=== PATIENT | female | born 1975 | race African-American/Black ===

== ENCOUNTER 2016-08-08 18:00 | Emergency (ER) | payer OTHER ==
[~2016-08-08] VITALS: Ht 160 cm; Wt 89.9 kg
[2016-08-08] MEDS ORDERED: HYDR25TA60 PO (18:51)
== END 2016-08-08 19:33 | disposition home or self-care (01) ==
LOC: ED 18:00
DX: I10 Essential (primary) hypertension (principal); E66.9 Obesity, unspecified
CPT/HCPCS: 99281

== ENCOUNTER 2018-03-18 21:34 | Emergency (ER) | payer OTHER ==
[~2018-03-18] VITALS: Ht 157.5 cm; Wt 93.4 kg
[~2018-03-18 21:34] MED LIST: HYDR25TA60 PO
[2018-03-18 21:42] VITALS: TEMP 98.5
[2018-03-18 22:29] VITALS: BP 131/89
== END 2018-03-18 22:30 | disposition home or self-care (01) ==
LOC: ED 21:34
DX: F45.8 Other somatoform disorders (principal)
CPT/HCPCS: 99281

== ENCOUNTER 2018-08-22 22:16 | Emergency (ER) | payer OTHER ==
[~2018-08-22] VITALS: Ht 157.5 cm; Wt 88.5 kg
[2018-08-22 23:26] LABS: PLATELET COUNT 385 K/uL (152-353)
[2018-08-22 23:34] LABS: POTASSIUM 3.4 mmol/L (3.6-5.2)
[2018-08-23 04:10] VITALS: BP 143/77; TEMP 98.2
== END 2018-08-23 04:10 | disposition short-term general hospital (02) ==
LOC: ED 22:16
PROVIDERS: Internal Medicine
DX: K35.890 Other acute appendicitis without perforation or gangrene (principal)
CPT/HCPCS: 80053; 81000; 85027; 96365; 96375; 99285; J1885; J2543; Q9963

== ENCOUNTER 2019-03-18 20:27 | Emergency (ER) | payer OTHER ==
[~2019-03-18] VITALS: Ht 157.5 cm; Wt 88.5 kg
[2019-03-18 21:40] VITALS: BP 131/84; TEMP 98.1
== END 2019-03-18 21:40 | disposition home or self-care (01) ==
LOC: ED 20:27
DX: J06.9 Acute upper respiratory infection, unspecified (principal)
CPT/HCPCS: 87502; 87651; 99283

== ENCOUNTER 2019-03-22 08:42 | Outpatient (CLI) | payer OTHER | END 2019-03-22 19:39 | disposition home or self-care (01) | LOC: RAD 08:42 | DX: J02.8 Acute pharyngitis due to other specified organisms (principal) ==

== ENCOUNTER 2019-08-14 13:41 | Outpatient (CLI) | payer OTHER | END 2019-08-14 20:38 | disposition home or self-care (01) | LOC: LAB 13:41 | DX: U07.1 COVID-19 (principal); J02.9 Acute pharyngitis, unspecified; J01.90 Acute sinusitis, unspecified; Z20.828 Contact with and (suspected) exposure to other viral communicable diseases | CPT/HCPCS: 87635; G2023; U0002 ==

== ENCOUNTER 2019-08-28 15:11 | Outpatient (CLI) | payer OTHER | END 2019-08-28 20:39 | disposition home or self-care (01) | LOC: RAD 15:11 | DX: B34.2 Coronavirus infection, unspecified (principal); J02.9 Acute pharyngitis, unspecified; R05 Cough ==

== ENCOUNTER 2019-10-05 08:14 | Outpatient (CLI) | payer OTHER | END 2019-10-05 20:23 | disposition home or self-care (01) | LOC: RAD 08:14 | DX: R05 Cough (principal); B37.0 Candidal stomatitis; B34.2 Coronavirus infection, unspecified ==

== ENCOUNTER 2020-02-11 11:36 | Outpatient (CLI) | payer OTHER ==
[2020-02-11 12:59] LABS: PLATELET COUNT 322 K/uL (152-353)
[2020-02-11 13:03] LABS: POTASSIUM 3.7 mmol/L (3.6-5.2)
== END 2020-02-11 21:58 | disposition home or self-care (01) ==
LOC: RAD 11:36 → LABW 11:36 → RAD 21:58
PROVIDERS: ATTEND Family Medicine
DX: R19.7 Diarrhea, unspecified (principal); R10.9 Unspecified abdominal pain
CPT/HCPCS: 36415; 80053; 82272; 85027; 87015; 87045; 87324; 87328; 87329; 87425; 87449; 87899

== ENCOUNTER 2021-02-02 10:25 | Outpatient (CLI) | payer OTHER ==
[2021-02-02 11:45] LABS: POTASSIUM 3.3 mmol/L (3.6-5.2)
[2021-02-02 11:55] LABS: PLATELET COUNT 351 K/uL (152-353)
== END 2021-02-02 19:00 | disposition home or self-care (01) ==
LOC: LABW 10:25
PROVIDERS: ATTEND Family Medicine
DX: R10.9 Unspecified abdominal pain (principal); M54.9 Dorsalgia, unspecified
CPT/HCPCS: 36415; 80053; 80061; 81000; 82150; 83690; 85027

== ENCOUNTER 2021-02-05 10:28 | Outpatient (CLI) | payer OTHER | END 2021-02-05 19:26 | disposition home or self-care (01) | LOC: US 10:28 | PROVIDERS: ATTEND Family Medicine | DX: R10.9 Unspecified abdominal pain (principal); M54.9 Dorsalgia, unspecified ==

== ENCOUNTER 2021-07-07 08:23 | Outpatient (CLI) | payer OTHER ==
[2021-07-07 08:50] LABS: PLATELET COUNT 344 K/uL (152-353)
[2021-07-07 09:17] LABS: POTASSIUM 3.6 mmol/L (3.6-5.2)
== END 2021-07-07 19:26 | disposition home or self-care (01) ==
LOC: LABW 08:23
PROVIDERS: ATTEND Family Medicine
DX: N93.8 Other specified abnormal uterine and vaginal bleeding (principal); N92.6 Irregular menstruation, unspecified; D64.9 Anemia, unspecified; R68.82 Decreased libido; E66.9 Obesity, unspecified; I10 Essential (primary) hypertension
CPT/HCPCS: 36415; 80053; 81000; 82728; 83001; 83002; 83540; 83550; 84402; 84403; 84439; 84443; 85027

== ENCOUNTER 2021-07-28 09:55 | Outpatient (CLI) | payer OTHER | END 2021-07-28 18:58 | disposition home or self-care (01) | LOC: US 09:55 | PROVIDERS: ATTEND Family Medicine | DX: N93.8 Other specified abnormal uterine and vaginal bleeding (principal); N92.6 Irregular menstruation, unspecified; D64.9 Anemia, unspecified; R68.82 Decreased libido; E66.9 Obesity, unspecified ==

== ENCOUNTER 2022-04-28 09:09 | Outpatient (CLI) | payer OTHER | END 2022-04-28 19:39 | disposition home or self-care (01) | LOC: MAMMO 09:09 | PROVIDERS: ATTEND Family Medicine | DX: Z12.31 Encounter for screening mammogram for malignant neoplasm of breast (principal) ==